=== PATIENT | male | born 1990 | race Caucasian/White ===

== ENCOUNTER 2016-06-01 18:06 | Emergency (ER) | payer MEDICARE, OTHER ==
[~2016-06-01] VITALS: Ht 193 cm; Wt 84.0 kg
[~2016-06-01 18:06] MED LIST: ALPR1TAB7 PO; AMPH20TA2 PO; FLUO20CA38 PO; LEVO125T71 PO; TRAZ100T15 PO
[2016-06-01 18:07] VITALS: Ht 193 cm; Wt 84.0 kg
--- NOTE | 2016-06-01 19:01 | ERD ---
ER Documentation Chief Complaint Date/Time DATE: 06/01/16 TIME: 18:44 Chief Complaint sob x 3 hours HPI This is a 26 year old male with history of hypothyroidism and anxiety presenting to the emergency department stating that he has been homeless for the past two days complaining of fatigue since this morning. Patient states he has not been eating or drinking fluids since he has been homeless. He has been complaining of mild shortness of breath and non-radiating chest pain with deep breath for past few hours. He denies drug or alcohol use. He denies fevers, palpitations, headache. ROS All systems reviewed and are negative except as per history of present illness. Medications Home Meds Active Scripts Alprazolam* (Alprazolam*) 1 Mg Tablet, 2 MG PO TID, #6 TAB Prov:SHARMIN WERNER MD 11/08/14 Reported Medications Amphet Taf-Kwzpxp-F-Amphet (Adderall) 20 Mg Tablet, 20 MG PO DAILY, TAB 11/08/14 Levothyroxine Sodium* (Levoxyl*) 125 Mcg Tablet, 125 MCG PO AC BREAKFAST, TAB 11/08/14 Trazodone Hcl* (Trazodone Hcl*) 100 Mg Tablet, 100 MG PO HS, TAB 11/08/14 Fluoxetine Hcl* (Prozac*) 20 Mg Capsule, 20 MG PO DAILY, CAP 11/08/14 Allergies Allergies: Coded Allergies: quetiapine (Verified Allergy, Unknown, 06/01/16) PMhx/Soc History of Surgery: No (HYPERTHYROIDISM. HTN. ) Anesthesia Reaction: No Hx Neurological Disorder: No Hx Respiratory Disorders: No Hx Cardiac Disorders: Yes (HYPERTENSION) Hx Psychiatric Problems: No Hx Miscellaneous Medical Probl: No Hx Alcohol Use: No Hx Substance Use: No Hx Tobacco Use: No Smoking Status: Current every day smoker Physical Exam Vitals Vital Signs Date Time Temp Pulse Resp B/P Pulse Ox O2 Delivery O2 Flow Rate FiO2 06/01/16 18:07 97.6 91 20 176/99 98 Physical Exam GENERAL: no acute distress, non-toxic appearing, sleeping comfortably in bed HENT: normocephalic/atraumatic EYES: conjunctiva is normal NECK: no noticeable or palpable swelling, no carotid bruits, no JVD CARDIOVASCULAR: RRR, good S1S2, no murmurs or gallops heard PULM: clear to auscultation, no use of accessory muscles, no crackles or wheezes. ABDOMEN: normal bowel sounds, abdomen soft and nontender EXT: no edema, cyanosis or clubbing MUSCULOSKELETAL: 5/5 strength, normal range of motion, no swollen or erythematous joints. NEURO: alert and oriented SKIN: no rashes, skin warm and dry, no erythematous areas PSYCH: normal mood and mentation Procedures/MDM This is a 26 year old male with history of hypothyroidism and anxiety presenting to the emergency department stating that he has been homeless for the past two days complaining of fatigue since this morning. Patient states he has not been eating or drinking fluids since he has been homeless. He has been complaining of mild shortness of breath and non-radiating chest pain with deep breath for past few hours. Patient had stable vital signs, he appeared well and in no distress. Patient had clear lungs, normal labored breathing. He had a normal neurological exam. My impression was that patient wants food and water. EKG was done in the ED and was unremarkable for STEMI or any acute pathology. Chest x-ray did not show any infiltrates, pneumothorax or pleural effusion. After patient was given food I have reassessed him and he was significantly better with no chest pain or shortness of breath. I have reviewed patient's past chart and he has been here numerous times for encounter for medication refill for chronic pain and anxiety. I have pulled up the CURES report and patient has received Stanton #90, Adderall #60 from physician and Alprazolam #90 from on 05/19/2016. He has been receiving these medications monthly since January 2016. He denies taking any other medications besides levothyroxine and Xanax and failed to tell me about Adderall and Stanton in the examination room Patient is stable for discharge to follow-up with his primary care physician for further action management. Discussed return to the emergency room for any worsening signs or symptoms. He understands and agrees with this plan EKG: read and signed off by myself and Rate/Rhythm: Normal Sinus Rhythm at 69bpm QRS, ST, T-waves: No changes consistent w/ acute ischemia Impression: No evidence of ischemia or arrhythmia CXR: No evidence for active cardiopulmonary disease. Departure Diagnosis: Primary Impression: Shortness of breath Condition: Stable KRISTIN MEDEROS PA-C Jun 01, 2016 19:00
--- NOTE | 2016-06-01 19:49 | RADRPT ---
PROCEDURE: XR Chest. CLINICAL INDICATION: Shortness of breath TECHNIQUE: Single AP portable chest COMPARISON: None. FINDINGS: The cardiomediastinal silhouette is within normal limits of size .. Delete the The lungs are clear without pleural effusion or focal consolidation. No pneumothorax. The osseous structures and soft t issues are unremarkable. IMPRESSION: 1. No evidence for active cardiopulmonary disease. RPTAT:AAJJ Adolfo Gonsalez Physician Date Time Electronically viewed and signed by Physician Florencio on 06/01/2016 19:49 JOSE/
== END 2016-06-01 20:18 | disposition home or self-care (01) ==
LOC: FTE 18:06
DX: R06.02 Shortness of breath (principal); I10 Essential (primary) hypertension; E03.9 Hypothyroidism, unspecified; F17.210 Nicotine dependence, cigarettes, uncomplicated
CPT/HCPCS: 71010; 93005

== ENCOUNTER 2016-06-01 20:47 | Emergency (ER) | payer MEDICARE, OTHER ==
[~2016-06-01] VITALS: Ht 193 cm; Wt 84.5 kg
[2016-06-01 21:00] VITALS: Ht 193 cm; Wt 84.5 kg
[2016-06-01] MEDS ORDERED: SOD CHLORIDE 0.9% 1,000 ML IV STA (21:29)
[2016-06-01 21:59] LABS: ADD SCAN DIFF NO
[2016-06-01 22:04] LABS: BASOPHIL # 0.1 10^3/ul (0.0-0.1); BASOPHILS % 0.7 % (0.0-2.0); EOSINOPHILS # 0.1 10^3/ul (0.0-0.5); EOSINOPHILS % 0.9 % (0.0-7.0); HEMOGLOBIN 14.6 g/dl (14.0-18.0); LYMPHOCYTES # 2.4 10^3/ul (0.8-2.9); LYMPHOCYTES % 31.8 % (15.0-51.0); MEAN CORPUSCULAR HEMOGLOBIN 31.5 pg (29.0-33.0); MEAN CORPUSCULAR VOLUME 92.7 fl (82.0-101.0); MEAN PLATELET VOLUME 10.6 fl (7.4-10.4); MONOCYTE # 0.7 10^3/ul (0.3-0.9); MONOCYTES % 8.8 % (0.0-11.0); NEUTROPHIL # 4.4 10^3/ul (1.6-7.5); NEUTROPHILS % 57.5 % (39.0-77.0); PLATELET COUNT 214 10^3/UL (140-415); RED BLOOD COUNT 4.64 10^6/ul (4.70-6.10); RED CELL DISTRIBUTION WIDTH 13.2 % (11.5-14.5); WHITE BLOOD COUNT 7.6 10^3/ul (4.8-10.8)
[2016-06-01 22:12] LABS: INR 1.02; PROTIME 13.4 Sec (12.2-14.2)
[2016-06-01 22:13] LABS: PARTIAL THROMBOPLASTIN TIME 29.7 Sec (25.0-35.0)
[2016-06-01 22:15] LABS: ALANINE AMINOTRANSFERASE 31 IU/L (13-69); ALBUMIN 4.5 g/dl (3.3-4.9); ALKALINE PHOSPHATASE 61 IU/L (42-121); ANION GAP 10 (8-16); ASPARTATE AMINO TRANSFERASE 24 IU/L (15-46); BILIRUBIN,INDIRECT 1.9 mg/dl (0-1.1); BILIRUBIN,TOTAL 1.9 mg/dl (0.2-1.3); BLOOD UREA NITROGEN 7 mg/dl (7-20); CALCIUM 9.3 mg/dl (8.4-10.2); CARBON DIOXIDE 31 mmol/L (21-31); CHLORIDE 101 mmol/L (97-110); CREATININE 0.95 mg/dl (0.61-1.24); GLUCOSE 95 mg/dl (70-220); POTASSIUM 3.9 mmol/L (3.5-5.1); SODIUM 138 mmol/L (135-144); TOTAL PROTEIN 7.5 g/dl (6.1-8.1)
--- NOTE | 2016-06-01 22:16 | RADRPT ---
PROCEDURE: XR Chest AP portable CLINICAL INDICATION: Chest pain TECHNIQUE: An AP portable radiograph of the chest was submitted. COMPARISON: None. FINDINGS: Support Hardware: None Cardiovascular: The cardiovascular silhouette appears unremarkable. Lung Abernathy: The lung abernathy appear clear with no nodule, alveolar infiltrate, or interstitial promi nence evident. Pleural Spaces: No pneumothorax or pleural effusion is identified. Osseous Structures: The osseous structures appear intact. Soft Tissues: The soft tissues appear unremarkable. IMPRESSION: Unremarkable portable chest. Physician Sylvain Date Time Electronically viewed and signed by Emmett Coon Physician on 06/01/2016 22:16 /
[2016-06-01 22:25] LABS: B-TYPE NATRIURETIC PEPTIDE 19 PG/ML (0-125)
[2016-06-01 22:32] LABS: T3 UPTAKE 33.6 % (23.5-40.5)
[2016-06-01 22:55] LABS: TROPONIN-I < 0.012 ng/ml (0.00-0.12)
[2016-06-01 22:56] LABS: BARBITURATES Negative (NEGATIVE); BENZODIAZEPINES Positive (NEGATIVE); CANNABINOIDS Positive (NEGATIVE); COCAINE Negative (NEGATIVE); OPIATES Negative (NEGATIVE)
[2016-06-01 23:30] VITALS: BP 115/75; PULSE 61; RESP 18; TEMP 98.9
--- NOTE | 2016-06-01 23:30 | ERD ---
ER Documentation Chief Complaint Date/Time DATE: 06/01/16 TIME: 23:29 Chief Complaint pt c/o sob, gen weakness, body aches HPI This is a 26-year-old male was seen in ER to. Patient was discharged immediately check making as he says he feels "weak. Patient is very vague with symptomology. His story is also changing from weakness to shortness of breath. Initial complaint was "he was out of meds "patient is very tangential. Seems to be malingering. ROS All systems reviewed and are negative except as per history of present illness. Medications Home Meds Active Scripts Alprazolam* (Alprazolam*) 1 Mg Tablet, 2 MG PO TID, #6 TAB Prov:SHARMIN WERNER MD 11/08/14 Reported Medications Amphet Agx-Sutlrj-I-Amphet (Adderall) 20 Mg Tablet, 20 MG PO DAILY, TAB 11/08/14 Levothyroxine Sodium* (Levoxyl*) 125 Mcg Tablet, 125 MCG PO AC BREAKFAST, TAB 11/08/14 Trazodone Hcl* (Trazodone Hcl*) 100 Mg Tablet, 100 MG PO HS, TAB 11/08/14 Fluoxetine Hcl* (Prozac*) 20 Mg Capsule, 20 MG PO DAILY, CAP 11/08/14 Allergies Allergies: Coded Allergies: quetiapine (Verified Allergy, Unknown, 06/01/16) PMhx/Soc History of Surgery: No Anesthesia Reaction: No Hx Neurological Disorder: No Hx Respiratory Disorders: No Hx Cardiac Disorders: No Hx Psychiatric Problems: No Hx Miscellaneous Medical Probl: Yes (hypothyroid) Hx Alcohol Use: Yes Hx Substance Use: Yes (marijuana) Hx Tobacco Use: Yes Smoking Status: Current every day smoker Physical Exam Vitals Vital Signs Date Time Temp Pulse Resp B/P Pulse Ox O2 Delivery O2 Flow Rate FiO2 06/01/16 21:15 98.9 69 18 130/71 100 Room Air 06/01/16 21:00 98.9 74 18 167/87 100 Physical Exam Const: [] Head: Atraumatic Eyes: Normal Conjunctiva ENT: Normal External Ears, Nose and Mouth. Neck: Full range of motion..~ No meningismus. Resp: Clear to auscultation bilaterally Cardio: Regular rate and rhythm, no murmurs Abd: Soft, non tender, non distended. Normal bowel sounds Skin: No petechiae or rashes Back: No midline or flank tenderness Ext: No cyanosis, or edema Neur: Awake and alert Psych: Normal Mood and Affect Result Diagram: 06/01/16213906/01/162139 Results 24 hrs Laboratory Tests Test 06/01/16 21:40 White Blood Count 7.610^3/ul Red Blood Count 4.6410^6/ul Hemoglobin 14.6g/dl Hematocrit 43.0% Mean Corpuscular Volume 92.7fl Mean Corpuscular Hemoglobin 31.5pg Mean Corpuscular Hemoglobin Concent 34.0g/dl Red Cell Distribution Width 13.2% Platelet Count 85545^3/UL Mean Platelet Volume 10.6fl Neutrophils % 57.5% Lymphocytes % 31.8% Monocytes % 8.8% Eosinophils % 0.9% Basophils % 0.7% Nucleated Red Blood Cells % 0.0/100WBC Neutrophils # 4.410^3/ul Lymphocytes # 2.410^3/ul Monocytes # 0.710^3/ul Eosinophils # 0.110^3/ul Basophils # 0.110^3/ul Nucleated Red Blood Cells # 0.010^3/ul Prothrombin Time 13.4Sec Prothrombin Time Ratio 1.0 INR International Normalized Ratio 1.02 Activated Partial Thromboplast Time 29.7Sec Sodium Level 138mmol/L Potassium Level 3.9mmol/L Chloride Level 101mmol/L Carbon Dioxide Level 31mmol/L Anion Gap 10 Blood Urea Nitrogen 7mg/dl Creatinine 0.95mg/dl Glucose Level 95mg/dl Calcium Level 9.3mg/dl Total Bilirubin 1.9mg/dl Direct Bilirubin 0.00mg/dl Indirect Bilirubin 1.9mg/dl Aspartate Amino Transf (AST/SGOT) 24IU/L Alanine Aminotransferase (ALT/SGPT) 31IU/L Alkaline Phosphatase 61IU/L Troponin I < 0.012ng/ml B-Type Natriuretic Peptide 19PG/ML Total Protein 7.5g/dl Albumin 4.5g/dl Globulin 3.00g/dl Albumin/Globulin Ratio 1.50 Thyroid Stimulating Hormone (TSH) 20.800MIU/L Free Thyroxine Index 2.08ug/ml Thyroxine (T4) 6.2ug/dl Triiodothyronine (T3) Uptake 33.6% Urine Opiates Screen Negative Urine Barbiturates Negative Urine Amphetamines Screen Positive Urine Benzodiazepines Screen Positive Urine Cocaine Screen Negative Urine Cannabinoids Positive Current Medications Medications (Trade) Dose Ordered Sig/Liv Route PRN Reason Start Time Stop Time Status Last Admin Dose Admin Sodium Chloride (NS) 1,000 ml @ 1,000 mls/hr Q1H STAT IV 06/01/16 21:29 06/01/16 22:28 DC 06/01/16 22:06 Procedures/MDM EKG: Rate/Rhythm: [Normal Sinus Rhythm] QRS, ST, T-waves: [No changes consistent w/ acute ischemia] Impression: [No evidence of ischemia or arrhythmia] Chest X-ray 1V Interpreted by me: Soft Tissue: No acute abnormalities Bones: No acute abnormalities Mediastinum/Cardiac Silhouette/Lungs: [No acute abnormalities] Medical decision-making: This is a 26-year-old male complains of generalized "weakness ". All testing is negative. He has no focal neurological complaints. Is been hydrated here in the emergency department. At this point I feel he is clinically stable for outpatient management. Patient will be discharged home. He has no evidence of suicidal homicidal ideation and has no evidence of auditory or visual hallucinations. Told to follow-up with PMD tomorrow. Return for worsening symptoms. Departure Diagnosis: Primary Impression: Generalized weakness Condition: Stable JESSE DEL TORO Jun 01, 2016 23:30
== END 2016-06-01 23:41 | disposition home or self-care (01) ==
LOC: E/R 20:47
DX: R53.1 Weakness (principal); E03.9 Hypothyroidism, unspecified; F17.210 Nicotine dependence, cigarettes, uncomplicated
CPT/HCPCS: 71010; 80053; 80307; 83880; 84436; 84443; 84479; 84484; 85025; 85610; 85730; 93005; J7030; 36415

== ENCOUNTER 2017-01-30 15:27 | Emergency (ER) | payer MEDICARE, OTHER ==
[~2017-01-30] VITALS: Ht 193 cm; Wt 81.9 kg
[2017-01-30 15:31] VITALS: Ht 193 cm; Wt 81.9 kg
[2017-01-30] MEDS ORDERED: ALPR2TAB PO (17:44)
[2017-01-30] MEDS ORDERED: LEVO175T6 PO ×2 (17:45→17:49)
[2017-01-30] MEDS ORDERED: ADDE30 PO (17:45)
--- NOTE | 2017-01-30 17:56 | ERD ---
ER Documentation Chief Complaint Chief Complaint bib self, cc: hypothyroidism medication ran out HPI Patient is a 27-year-old male who presents ED for concerns of refill for his hypothyroidism medication. Patient states he takes levothyroxine daily. Patient has been taking this medication for pain years now. Patient states he lost his prescription 1 week ago. Patient states that he goes to [facility] pharmacy in [place]. Patient is requesting refill at this time. Denies any fevers, chills, nausea, vomiting, chest pain, shortness breath, abdominal pain, diarrhea or loss consciousness. Patient states he did see his primary care physician approximately 2 weeks ago and had blood work obtained at that time however he does not know his results yet. ROS All systems reviewed and are negative except as per history of present illness. Medications Home Meds Active Scripts Levothyroxine Sodium* (Levothyroxine Sodium*) 175 Mcg Tablet, 175 MCG PO BEFORE BREAKFAST, #15 TAB Prov:FELIPE MOY PA-C 01/30/17 Reported Medications Levothyroxine Sodium* (Levothyroxine Sodium*) 175 Mcg Tablet, 175 MCG PO BEFORE BREAKFAST, #30 TAB 01/30/17 Dextroamphetamine-Amphetamine (Adderall) 30 Mg Tab, 30 MG PO TID, TAB 01/30/17 Alprazolam* (Xanax*) 2 Mg Tablet, 2 MG PO TID Y for ANXIETY, TAB 01/30/17 Discontinued Reported Medications Amphet Azw-Ljtolj-J-Amphet (Adderall) 20 Mg Tablet, 20 MG PO DAILY, TAB 11/08/14 Levothyroxine Sodium* (Levoxyl*) 125 Mcg Tablet, 125 MCG PO AC BREAKFAST, TAB 11/08/14 Trazodone Hcl* (Trazodone Hcl*) 100 Mg Tablet, 100 MG PO HS, TAB 11/08/14 Fluoxetine Hcl* (Prozac*) 20 Mg Capsule, 20 MG PO DAILY, CAP 11/08/14 Discontinued Scripts Alprazolam* (Alprazolam*) 1 Mg Tablet, 2 MG PO TID, #6 TAB Prov:SHARMIN WERNER MD 11/08/14 Allergies Allergies: Coded Allergies: quetiapine (Verified Allergy, Unknown, 01/30/17) PMhx/Soc Medical and Surgical Hx: pt denies Medical Hx, pt denies Surgical Hx History of Surgery: No Anesthesia Reaction: No Hx Neurological Disorder: No Hx Respiratory Disorders: No Hx Cardiac Disorders: No Hx Psychiatric Problems: No Hx Miscellaneous Medical Probl: Yes (hypothyroid) Hx Alcohol Use: Yes Hx Substance Use: Yes (marijuana) Hx Tobacco Use: Yes Smoking Status: Current every day smoker Physical Exam Vitals Vital Signs Date Time Temp Pulse Resp B/P Pulse Ox O2 Delivery O2 Flow Rate FiO2 01/30/17 18:02 98.2 82 18 143/80 98 Room Air 01/30/17 15:31 99.0 117 20 148/88 100 Physical Exam GENERAL: Well-developed, well-nourished male. Appears in no acute distress. Speaking in full sentences. HEAD: Normocephalic, atraumatic. EYES: EOMs grossly intact. No conjunctival erythema. NECK: Supple. No meningismus. Normal range of motion of the neck. LUNG: Clear to auscultation bilaterally. No rhonchi, wheezing, rales or coarse breath sounds. HEART: Regular rate and rhythm. No murmurs, rubs or gallops. EXTREMITIES: Equal pulses bilaterally. No peripheral clubbing, cyanosis or edema. No unilateral leg swelling. NEUROLOGIC: Alert and oriented. Moving all four extremities without any difficulty. Normal speech. Steady gait. SKIN: Normal color. Warm and dry. No rashes or lesions. Procedures/MDM MEDICAL DECISION MAKING: Patient is a 27-year-old male who presents ED for concerns of a prescription refill of his levothyroxine. Patient states he lost prescription 1 week ago. Patient states he did have blood work done 2 weeks ago have results are pending.. Vital signs were reviewed. Patient is afebrile. Patient was not hypoxic. vein access technician did verify the patient's prescription. Patient last filled his prescription on 12-23-16. Patient is currently taking levothyroxine 175 mcg daily. Patient denied any complications taking this medication in the past. At this time with patient presentation is most consistent with medication refill. Low suspicion for drug abuse. Low suspicion for any emergent thyroid conditions at this time. Patient was nontoxic, [id number] prior to discharge. Patient advised to follow-up with primary care physician for additional refills and for monitoring of his TSH / T3/ T4 levels. PRESCRIPTION: Levothyroxine DISCHARGE: At this time, patient is stable for discharge and outpatient management. I have instructed the patient to follow-up with his/her primary care physician in 1-2 days. I have discussed with the patient the possibility of needing to see a specialist for further workup and imaging studies if symptoms persist. I have instructed the patient to promptly return to the ER for any new or worsening symptoms including increased pain, fever, nausea, vomiting, weakness or LOC. The patient and/or family expressed understanding of and agreement with this plan. All questions were answered. Home care instructions were provided. Patients blood pressure was elevated (>120/80) but appears stable without evidence of hypertensive emergency, hypertensive urgency or end-organ failure. I had discussion with the patient about the risks of hypertension. I have advised the patient to follow up with his/her primary care physician for outpatient monitoring and treatment for hypertension in 2-3 days. I have instructed the patient to return to the ER for any new or worsening symptoms including chest pain, shortness of breath, headache, blurred vision, confusion, nausea, vomiting or LOC. Disclaimer: Inadvertent spelling and grammatical errors are likely due to EHR/ dictation software use and do not reflect on the overall quality of patient care. Also, please note that the electronic time recorded on this note does not necessarily reflect the actual time of the patient encounter. Departure Diagnosis: Primary Impression: Encounter for medication refill Condition: Stable Patient Instructions: Taking Medicine Safely Referrals: [facility] YOU HAVE RECEIVED A MEDICAL SCREENING EXAM AND THE RESULTS INDICATE THAT YOU DO NOT HAVE A CONDITION THAT REQUIRES URGENT TREATMENT IN THE EMERGENCY DEPARTMENT. FURTHER EVALUATION AND TREATMENT OF YOUR CONDITION CAN WAIT UNTIL YOU ARE SEEN IN YOUR DOCTORS OFFICE WITHIN THE NEXT 1-2 DAYS. IT IS YOUR RESPONSIBILITY TO MAKE AN APPOINTMENT FOR FOLOW-UP CARE. IF YOU HAVE A PRIMARY DOCTOR --you should call your primary doctor and schedule an appointment IF YOU DO NOT HAVE A PRIMARY DOCTOR YOU CAN CALL OUR PHYSICIAN REFERRAL HOTLINE AT IF YOU CAN NOT AFFORD TO SEE A PHYSICIAN YOU CAN CHOSE FROM THE FOLLOWING [facility] [address] [place] [facility] [address] [facility] [address] [facility] [address] [facility] [address] [facility]. [facility] [address] [facility]. [facility] YOU HAVE RECEIVED A MEDICAL SCREENING EXAM AND THE RESULTS INDICATE THAT YOU DO NOT HAVE A CONDITION THAT REQUIRES URGENT TREATMENT IN THE EMERGENCY DEPARTMENT. FURTHER EVALUATION AND TREATMENT OF YOUR CONDITION CAN WAIT UNTIL YOU ARE SEEN IN YOUR DOCTORS OFFICE WITHIN THE NEXT 1-2 DAYS. IT IS YOUR RESPONSIBILITY TO MAKE AN APPOINTMENT FOR FOLOW-UP CARE. IF YOU HAVE A PRIMARY DOCTOR --you should call your primary doctor and schedule and appointment IF YOU DO NOT HAVE A PRIMARY DOCTOR YOU CAN CALL OUR PHYSICIAN REFERRAL HOTLINE AT . IF YOU CAN NOT AFFORD TO SEE A PHYSICIAN YOU CAN CHOSE FROM THE FOLLOWING [facility] INSTITUTIONS: [facility] [address] [place] [address] [facility] [address] [place] [address] [facility] [address] [place] [address] Additional Instructions: Call your primary care doctor TOMORROW for an appointment during the next 1-2 days.See the doctor sooner or return here if your condition worsens before your appointment time. Follow-up with her primary care physician for any additional refills. Follow- up with your primary care physician for blood work results. FELIPE MOY PA-C Jan 30, 2017 17:56
[2017-01-30 18:02] VITALS: BP 143/80; PULSE 82; RESP 18; TEMP 98.2
== END 2017-01-30 18:04 | disposition home or self-care (01) ==
LOC: FTE 15:27
DX: Z76.0 Encounter for issue of repeat prescription (principal); E03.9 Hypothyroidism, unspecified; F17.210 Nicotine dependence, cigarettes, uncomplicated
CPT/HCPCS: 99281

== ENCOUNTER 2017-04-20 19:57 | Emergency (ER) | END 2017-04-21 02:42 | disposition left against medical advice (07) ==